=== PATIENT | female | born 1955 | race Caucasian/White ===

== ENCOUNTER 2020-01-30 17:25 | Emergency (ER) | payer OTHER ==
[~2020-01-30] VITALS: Ht 154.9 cm; Wt 65.3 kg
[2020-01-30 17:28] VITALS: Ht 154.9 cm; Wt 65.3 kg
[2020-01-30 19:32] VITALS: BP 161/83
== END 2020-01-30 19:32 | disposition home or self-care (01) ==
LOC: ED 17:25
DX: S01.81XA Laceration without foreign body of other part of head, initial encounter (principal); S00.531A Contusion of lip, initial encounter; S60.512A Abrasion of left hand, initial encounter; S60.511A Abrasion of right hand, initial encounter; E11.9 Type 2 diabetes mellitus without complications; W01.0XXA Fall on same level from slipping, tripping and stumbling without subsequent striking against object, initial encounter; Y93.89 Activity, other specified; Y92.481 Parking lot as the place of occurrence of the external cause; Y99.8 Other external cause status
CPT/HCPCS: 90715

== ENCOUNTER 2020-02-05 15:33 | Emergency (ER) | payer OTHER ==
[~2020-02-05] VITALS: Ht 154.9 cm; Wt 65.3 kg
[2020-02-05 15:54] VITALS: Ht 154.9 cm; Wt 65.3 kg
[2020-02-05 16:13] VITALS: BP 126/76
== END 2020-02-05 16:13 | disposition home or self-care (01) ==
LOC: ED 15:33
DX: S01.81XD Laceration without foreign body of other part of head, subsequent encounter (principal); X58.XXXD Exposure to other specified factors, subsequent encounter; E11.9 Type 2 diabetes mellitus without complications